=== PATIENT | male | born 1975 | race Caucasian/White ===

== ENCOUNTER → 2017-11-16 | Outpatient (CLI) | payer MEDICAID | LOC: BMCIMAGING 14:51 | PROVIDERS: ATTEND Podiatrist Foot & Ankle Surgery | DX: S92.352D Displaced fracture of fifth metatarsal bone, left foot, subsequent encounter for fracture with routine healing (principal); S92.345D Nondisplaced fracture of fourth metatarsal bone, left foot, subsequent encounter for fracture with routine healing ==

== ENCOUNTER 2017-11-22 06:00 | Day surgery (SDC) | payer MEDICAID ==
[~2017-11-22 06:00] MED LIST: ceFAZolin 2 GM/SWFI 2 GM/20 ML SYR IVP ONE
[2017-11-22] MEDS ORDERED: MIDAZOLAM 2 MG/2 ML VIAL IVP ONE (06:47)
--- NOTE | 2017-11-22 06:48 | PDANEPAE ---
ANE Past Medical History - Cardiovascular History Hx Hypertension: No Hx Arrhythmias: No Hx Chest Pain: No Hx Coronary Artery / Peripheral Vascular Disease: No Hx CHF / Valvular Disease: No Hx Palpitations: No - Pulmonary History Hx COPD: No Hx Asthma/Reactive Airway Disease: No Hx Recent Upper Respiratory Infection: No Hx Oxygen in Use at Home: No Hx Sleep Apnea: No - Neurologic History Hx Cerebrovascular Accident: No Hx Seizures: No Hx Dementia: No - Endocrine History Hx Diabetes: No Hypothyroid: No Hyperthyroid: No Obesity: no - Renal History Hx Renal Disorders: No - Liver History Hx Hepatic Disorders: No - Neurological & Psychiatric Hx Hx Neurological and Psychiatric Disorders: No - Cancer History Hx Cancer: No - Congenital Disorder History Hx Congenital Disorders: No - GI History GERD: no Hx Gastrointestinal Disorders: No - Chronic Pain History Chronic Pain: No ANE Review of Systems Review of Systems: - Exercise capacity METS (RN): 5 METS ANE Patient History - Allergies Allergies/Adverse Reactions: No Known Allergies Allergy (Unverified 11/21/17 08:32) - Anes Hx Anes Hx: no prior problems - Smoking Hx Smoking Status: Never smoked - Family Anes Hx Family Anes Hx: none ANE Physical Exam - Airway Neck exam: FROM Mallampati Score: Class 1 Mouth exam: normal dental/mouth exam - Pulmonary Pulmonary: no respiratory distress, no rales or rhonchi, clear to auscultation - Cardiovascular Cardiovascular: regular rate and rhythym, no murmur, rub, or gallop - ASA Status ASA Status: I ANE Anesthesia Plan Anesthesia Plan: MAC Total IV Anesthesia: Yes
[2017-11-22] MEDS ORDERED: PROPOFOL/EMULSION 500 MG/50 ML BOTTLE IV ONE ×3 (06:53→08:49)
[2017-11-22] MEDS ORDERED: fentaNYL 100 MCG/2 ML INJ ONE (06:53)
--- NOTE | 2017-11-22 07:00 | PDHPUP ---
History & Physical Update H&P update statement: This history and physical update is based on an assessment of the patient which was completed after admission or registration (within 24 hours), but prior to the surgery/procedure. H&P update: H&P reviewed & patient examined, no change in patient's condition since H&P completed
[2017-11-22] MEDS ORDERED: BUPIVACAINE 0.5% 30 ML SDV ONE (07:07)
[2017-11-22] MEDS ORDERED: NALOXONE HCL 0.4 MG/ML INJ IVP PRN (07:32)
[2017-11-22] MEDS ORDERED: OXYCODONE/APAP 5/325 TAB PO PRN ×2 (07:32→09:35)
[2017-11-22] MEDS ORDERED: fentaNYL 100 MCG/2 ML INJ IVP PRN (07:32)
[2017-11-22] MEDS ORDERED: LR 500 ML IV PRN (07:32)
[2017-11-22] MEDS ORDERED: PROMETHAZINE HCL 25 MG/ML INJ IVP PRN (07:32)
[2017-11-22] MEDS ORDERED: ACETAMINOPHEN 500 MG TAB PO PRN (07:32)
[2017-11-22] MEDS ORDERED: ONDANSETRON 4 MG/2 ML VIAL IVP PRN ×2 (07:32→09:35)
[2017-11-22] MEDS ORDERED: ONDANSETRON DISINTEGRATING 4 MG TAB PO PRN (09:35)
--- NOTE | 2017-11-22 09:46 | POSTANESTH ---
Post Anesthetic Evaluation Cardiovascular Status: Normal, Stable Respiratory Status: Normal, Stable Level of Consciousness/Mental Status: Can Participate in Eval Pain Control: Adequate, Prn Tx Ordered Nausea/Vomiting Control: Adequate, Prn Tx Ordered Complications Possibly Related to Anesthesia: None Noted
[2017-11-22 09:57] VITALS: TEMP 97.2
[2017-11-22 11:05] VITALS: BP 133/88; RESP 14; O2SAT 96
--- NOTE | 2017-11-22 14:04 | GOP ---
[f rep st] OPERATIVE REPORT DATE OF OPERATION: 11/22/2017 SURGEON: Matthew Corona DPM FURNACE OPERATOR: None. ANESTHESIA: Local with monitored anesthesia care. PREOPERATIVE DIAGNOSIS: Fractured and displaced 4th and 5th metatarsals, left foot. POSTOPERATIVE DIAGNOSIS: Fractured and displaced 4th and 5th metatarsals, left foot. PROCEDURE PERFORMED: 1. A left 4th metatarsal open reduction internal fixation. 2. A left 5th metatarsal open reduction internal fixation. FINDINGS: SPECIMENS: None. ESTIMATED BLOOD LOSS: Scant. INDICATIONS: The patient is an otherwise healthy, 42-year-old gentleman, who presented to my office after falling and sustaining an injury to his left foot which resulted in a comminuted and displaced 4th and 5th metatarsal midshaft fractures of the left foot. The patient was given options for treatm ent and chose to fix this surgically. The patient understands the risks, benefits, and alternatives to the procedures offered and wishes to proceed. DESCRIPTION OF PROCEDURE: Under mild sedation, the patient was brought into the operating room, plac ed on the operating table in supine position. Following further IV sedation, a regional block was pl aced to the patient's left forefoot with 30 cc of 0.5% Marcaine plain. The foot was then scrubbed, p repped, and draped in the usual aseptic manner. A sterile pneumatic tourniquet was placed about the patient's well-padded supramalleolar area. An Esmarch bandage was utilized to exsanguinate the patie nt's left foot, and the tourniquet was inflated to 250 mmHg. Attention was then directed to the area overlying the dorsal lateral aspect of the patient's distal 5 th metatarsal, where a 6 cm linear longitudinal incision was made in line with the long axis of the 5 th metatarsal. The incision was deepened via sharp and blunt dissection, care being taken to identif y and retract all vital neural and vascular structures. All bleeders were ligated and cauterized as necessary. A periosteal incision was made in line with the skin incision. The soft tissue structure s were reflected medially and laterally, thus exposing the distal shaft and head of the 5th metatarsa l, as well as the base of the proximal phalanx. The fracture was immediately identified, as well as the comminution at the neck of the metatarsal. The hematoma was evacuated with both lavage, as well as curettage, and the fracture was reduced and held in place with a lobster claw bone reduction force ps. An oblique plate was placed on the lateral aspect of the patient's 5th metatarsal once temporary fixation was obtained and jew of the anatomy was confirmed with intraoperative fluoroscopy. At this time, a combination of compression, as well as locking screws was used to internally fixate the fracture. A dorsal bone fragment was put in place with a cannulated 2.0 screw from dorsal to tj ntar. The wound was then flushed with copious amounts of sterile normal saline. The periosteal and capsular tissues were closed with a 2-0 Vicryl. The subcutaneous tissues were closed with 3-0 Monocr yl and the 4-0 . The skin was reapproximated and coapted utilizing a running baseball-type suture of 4-0 Prolene. Attention was then directed to the area overlying the 4th metatarsal, where a curvilinear incision ov erlying the 4th metatarsal was made, measuring roughly 6 cm. The incision was deepened via sharp and blunt dissection, care being taken to identify and retract all vital neural and vascular structures. All bleeders were ligated and cauterized as necessary. A periosteal and capsular incision was made between the tendons of the extensor digitorum longus and extensor digitorum brevis, traveling toward the 4th toe. These structures were reflected medially and laterally, thus exposing the head and dis lillian shaft of the 4th metatarsal. Marked comminution was noted and displacement, primarily in a proxi mal position. The hematoma was evacuated with both lavage and curettage. Fracture fragments were at tempted to be put in place, but were not successfully put in place until a 1.2 mm K-wire was placed i n a retrograde fashion percutaneously through the patient's plantar forefoot into the head of the 4th metatarsal and traveling through the medullary canal. This held the 4th metatarsal head out to alexandra th as a roughly 1 cm section of the neck was completely comminuted. A T-plate was placed on the dors al aspect of the patient's 4th metatarsal. Using a combination of locking screws and compression scr ews, this was affixed and held the 4th metatarsal out to length. The intramedullary K-wire was then removed. Demineralized bone matrix was used to help hold the fragments in a proper place and restore the anatomy to the comminuted area of the 4th metatarsal. The fixation was checked under intraopera tive fluoroscopy and noted to be adequate. The wound was flushed with copious amounts of sterile nor mal saline. The wound was closed in layers, with 2-0 Vicryl closing the periosteal and capsular tiss ues, 3-0 Monocryl closing the subcutaneous layers, and the skin was reapproximated and coapted utiliz ing a running baseball-type suture of 4-0 Prolene. The wound was then dressed with Xeroform, and a s terile compressive dressing consisting of 4 x 4s and Kimberly. A light Coban wrap was placed on the pat ient's foot. The tourniquet was dropped, and a prompt hyperemic response was noted to all digits of the left foot. The patient's foot and ankle were placed in a posterior splint. This was used to hol d the patient's ankle at 90 degrees, as well as to help with any postoperative edema. The patient tolerated the procedure and anesthesia well. He was transferred to the recovery room wit h vital signs stable and vascular status intact to all digits of the left foot. Following a period o f postoperative monitoring, the patient will be discharged home with the following written and oral p ostoperative instructions: 1. Keep dressing clean, dry, and intact. 2. Ice and elevate as instructed. 3. Use caution while taking pain medication. 4. The patient should be nonweightbearing at all times for the next 6 weeks. 5. All followup questions and concerns should be directed toward [facility] at [phone]. HEMOSTASIS: Pneumatic ankle tourniquet at 250 mmHg x103 minutes. MATERIALS: All items are from [place] 28. An oblique plate on the 5th metatarsal. A combination of nonlocking and locking screws, all 2.5 x 12 mm x 13 mm x 12 mm and x 11 mm, a single 2.0 x 12 mm can nulated screw, as well as a 7-hole T-plate and combination of locking screws measuring 2.5 x 12 x 13 x 13 x 12 and x 12, a total of 11 screws. INJECTABLES: 30 cc of 0.5% Marcaine plain. COMPLICATIONS: None. /[id number]/MODL
== END 2017-11-22 10:51 | disposition home or self-care (01) ==
LOC: FSGY 06:00
PROVIDERS: ATTEND Podiatrist Foot & Ankle Surgery
PROC: 0QSP04Z Reposition Left Metatarsal with Internal Fixation Device, Open Approach (ICD-10-PCS; principal; 2017-11-22 07:15)
DX: S92.352A Displaced fracture of fifth metatarsal bone, left foot, initial encounter for closed fracture (principal); S92.342A Displaced fracture of fourth metatarsal bone, left foot, initial encounter for closed fracture; W10.8XXA Fall (on) (from) other stairs and steps, initial encounter; Y93.9 Activity, unspecified
CPT/HCPCS: C1713; J0690; J2250; J2704; J3010

== ENCOUNTER → 2017-12-03 | Outpatient (CLI) | payer MEDICAID | LOC: BMCIMAGING 15:24 | PROVIDERS: ATTEND Podiatrist Foot & Ankle Surgery | DX: S92.345G Nondisplaced fracture of fourth metatarsal bone, left foot, subsequent encounter for fracture with delayed healing (principal) ==

== ENCOUNTER → 2018-01-04 | Outpatient (CLI) | payer MEDICAID | LOC: BMCIMAGING 10:36 | PROVIDERS: ATTEND Podiatrist Foot & Ankle Surgery | DX: S92.352D Displaced fracture of fifth metatarsal bone, left foot, subsequent encounter for fracture with routine healing (principal); S92.342D Displaced fracture of fourth metatarsal bone, left foot, subsequent encounter for fracture with routine healing ==